=== PATIENT | male | born 1990 | race Caucasian/White ===

== ENCOUNTER 2017-05-09 17:09 | Emergency (ER) | payer OTHER ==
[~2017-05-09] VITALS: Ht 185.4 cm; Wt 74.8 kg
--- NOTE | 2017-05-09 19:43 | ED GI/GU/ABDOMINAL COMPLAINT ---
History of Present Illness General Chief Complaint: Male Genitourinary Problems Stated Complaint: PT IS HAVING PAIN IN RT TESTICULE Source: patient Exam Limitations: no limitations Vital Signs & Intake/Output Vital Signs & Intake/Output Vital Signs Date Time Temp Pulse Resp B/P B/P Pulse O2 O2 Flow FiO2 Mean Ox Delivery Rate 05/09 2100 98.0 78 18 134/66 98 Room Air 05/09 1751 98.0 76 18 165/78 99 Room Air Room Air Allergies Coded Allergies: MDX - Penicillin (PENICILLIN) (Severe, RASH 09/27/12) MDX - SULFA (sulfonamide) (SULFA (SULFONAMIDE)) (Severe, RASH 09/27/12) Uncoded Allergies: CATS (09/27/12) DANDER (09/27/12) DOGS (09/27/12) POLLEN (09/27/12) Reconcile Medications Levofloxacin (Levaquin) 500 MG TABLET 1 TAB PO DAILY EPIDIDMYTIS Triage Note: PT TO ED WITH C/O RIGHT TESTICLE PAIN "I HAD THIS ONCE BEFORE, ABOUT 6 YEARS AGO, THEY SAID IT WAS A BLOCKAGE". Triage Nurses Notes Reviewed? yes Onset: Abrupt Duration: hour(s): Timing: multiple episodes today Quality/Severity: stabbing Severity Numbers: 7 Location: scrotal Radiation: groin Activities at Onset: sleep Sexually Active: Yes Last Time You Were Sexual: less than 2 months ago Sexual Orientation: Heterosexual Use of Protection: Yes Sometimes Modifying Factors: Improves With: rest. Worsens With: exercise. HPI: patient is a 26 y/o male with no PMH presenting for acute onset right testicular pain. patient states that the pain woke him up at 3 A.M and he was unable to return to sleep. patient took "cellulose derivative" to help him pee and the pain went away for 2 hours until 11A.M during physical activity. patient states that the pain was moderately relieved from the ultrasound and the painalso began spreading to his left testicle after the ultrasound. He has had similar pain in the past 7 years ago when he had a "blockage in my tubes" that went away without intervention. patient was assess by urology at that time. patient currently denies any trauma, discharge, odor, abdominal pain, N/V/D, and dysuria. One sexual partner in 3 months. (Tal Julien) Past History Travel History Traveled to [place] past 21 day No Medical History Any Pertinent Medical History? none Neurological: NONE EENT: NONE Cardiovascular: NONE Respiratory: NONE Gastrointestinal: NONE Hepatic: NONE Renal: NONE Musculoskeletal: NONE Psychiatric: NONE Endocrine: NONE Blood Disorders: NONE Cancer(s): NONE GEODETIC COMPUTATOR/Reproductive: NONE Surgical History Surgical History: none Psychosocial History What is your primary language Kiswahili Tobacco Use: Never used ETOH Use: occasional use Illicit Drug Use: denies illicit drug use Family History Hx Contributory? No Sexual History Sexually Active Yes # of partners 1 Sexual Orientation Heterosexual Use of Protection Yes Sometimes (Tal Julien) Review of Systems Review of Systems Constitutional: Reports: no symptoms. EENTM: Reports: no symptoms. Respiratory: Reports: no symptoms. Cardiovascular: Reports: no symptoms. GI: Reports: no symptoms. Genitourinary: Reports: pain. Musculoskeletal: Reports: no symptoms. Skin: Reports: no symptoms. Neurological/Psychological: Reports: no symptoms. Hematologic/Endocrine: Reports: no symptoms. Immunologic/Allergic: Reports: no symptoms. All Other Systems: Reviewed and Negative (Tal Julien) Physical Exam Physical Exam General Appearance: well developed/nourished, no apparent distress, alert, awake , comfortable Head: atraumatic, normal appearance Eyes: Bilateral: normal appearance. Ears, Nose, Throat, Mouth: hearing grossly normal, moist mucous membrane Neck: normal inspection Respiratory: normal breath sounds, chest non-tender, no respiratory distress, lungs clear Cardiovascular: regular rate/rhythm Gastrointestinal: normal bowel sounds, soft, tenderness (bilateral groin) Male Genitals: normal genitalia, epididymal tenderness, testicular tenderness (R ), testicular tenderness (L) Back: normal range of motion Neurologic/Psych: awake, alert, oriented x 3 Skin: intact, normal color, warm/dry Core Measures ACS in differential dx? No Sepsis Present: No Sepsis Focused Exam Completed? No (Tal Julien) Progress Differential Diagnosis: ureterolithiasis, urinary retention, urethritis, UTI/ pyelo, epididymitis Plan of Care: Orders Procedure Date/time Status Add-on Test (ER Only) 05/09 1954 Active CHLAMYDIA-GC DNA PROBE 05/09 1939 Active URINALYSIS 05/09 1825 Complete Laboratory Tests 05/09/171939: Urine Color YEL, Urine Clarity CLEAR, Urine pH 6.0, Ur Specific [place] 1.025, Urine Protein NEG, Urine Ketones NEG, Urine Nitrite NEG, Urine Bilirubin NEG, Urine Urobilinogen 0.2, Ur Leukocyte Esterase NEG, Ur Microscopic EXAM NOT REQUIRED, Urine Hemoglobin NEG, Urine Glucose NEG Microbiology 05/09 1939 URINE ROUT: GC DNA Probe - RECD 05/09 1939 URINE ROUT: Chlamydia DNA Probe ([place]) - RECD Diagnostic Imaging: Viewed by Me: Ultrasound. Discussed w/RAD: Ultrasound. Radiology Impression: PATIENT: ESTEPHANIA MAHONEY PRESENT AGE: 26 PATIENT ACCOUNT NO: [id number] : 90 LOCATION: [facility] ORDERING PHYSICIAN: Tal ROCHE SERVICE DATE: 05/09/17 EXAM TYPE: US - US -TESTICULAR EXAMINATION: US SCROTUM CLINICAL INFORMATION: Right testicular pain. COMPARISON: None TECHNIQUE: A sonogram of the scrotum was performed assessing ocampo-scale appearance and color Doppler flow. Spectral analysis and Doppler interrogation was performed. FINDINGS: RIGHT: Right testicle measures 5.1 x 2.4 x 2.9 cm, volume 25.2 mL. Parenchymal echotexture is normal. No focal testicular parenchymal lesions are visualized. Normal symmetric intratesticular flow is visualized. Right epididymal head is normal in size. There is a 5 mm right epididymal head cyst. No right hydrocele or varicocele is seen. LEFT: Left testicle measures 4.9 x 2.1 x 3.0 cm, volume 21.9 mL. Parenchymal echotexture is normal. No focal testicular parenchymal lesions are visualized. Normal symmetric intratesticular flow is visualized. Left epididymal head is normal in size. No left hydrocele or varicocele is seen. IMPRESSION: Normal testes. 5 mm right epididymal head cyst. DICTATED BY: Blair Castellanos MD DATE/TIME DICTATED:05/09/171943 SAND BLASTER:NEO DATE/TIME TRANSCRIBED:05/09/171943 CONFIDENTIAL, DO NOT COPY WITHOUT APPROPRIATE AUTHORIZATION. <Electronically signed in Other Vendor System> SIGNED BY: Blair Castellanos MD 05/09/171947 Initial ED EKG: none Comments: Patient clinically looks well. In no apparent distress. Follow-up with urologist. Return if any concerns worsening symptoms. (Buster ROCHE,Tal) Departure Departure Disposition: HOME OR SELF CARE Condition: Stable Clinical Impression Primary Impression: Epididymitis Referrals: Sarbjit PALACIOS,Roman Vrenon MD,Jace Reynoso (PCP/Family) Additional Instructions: Take levofloxacin as prescribed. Follow-up with primary care doctor. Follow-up with the urologist provided. Please go over all results of today's visit with your primary care doctor. Contact your primary care doctor to let them know you were here in the emergency room. There may be nonspecific findings which may not be related to your visit today here in the emergency room but may require further evaluation and chronic monitoring by your primary care doctor. If you had a laceration today the chance of foreign body always remains. You should follow-up with your primary care doctor for recheck in 3-5 days for a wound check. If you had an x-ray done there is a chance that a fracture could have been missed on initial read and you should follow-up with your primary care doctor for repeat x-rays if symptoms persist. If your blood pressure was elevated here in the emergency room please have rechecked by [facility] primary care doctor within the next 48. If you were prescribed a narcotic here in the emergency room or any type of controlled substances you're not allowed to drive while taking this medication or operate any type of heavy machinery. Narcotics can make you feel lightheaded dizziness nausea and can cause constipation. You may need to corn picker a stool softener. Thank you for choosing [facility] emergency room. Please return to the emergency room immediately if you have any other concerns worsening of symptoms. Departure Forms: Customer Survey General Discharge Information Prescriptions: Current Visit Scripts Levofloxacin (Levaquin) 1 TAB PO DAILY #7 TAB (Tal Julien) PA/MERCHANT MILLER Co-Sign Statement Statement: ED Attending supervision documentation- I saw and evaluated the patient. I have also reviewed all the pertinent lab results and diagnostic results. I agree with the findings and the plan of care as documented in the PA's/MERCHANT MILLER's documentation. x I have reviewed the ED Record and agree with the PA's/MERCHANT MILLER's documentation. [] Additions or exceptions (if any) to the PAs/MERCHANT MILLER's note and plan are summarized below: [] (Leanna PALACIOS,Neno)
--- NOTE | 2017-05-09 19:48 | ULTRASOUND REPORT ---
EXAMINATION: US SCROTUM CLINICAL INFORMATION: Right testicular pain. COMPARISON: None TECHNIQUE: A sonogram of the scrotum was performed assessing ocampo-scale appearance and color Doppler flow. Spectral analysis and Doppler interrogation was performed. FINDINGS: RIGHT: Right testicle measures 5.1 x 2.4 x 2.9 cm, volume 25.2 mL. Parenchymal echotexture is normal. No focal testicular parenchymal lesions are visualized. Normal symmetric intratesticular flow is visualized. Right epididymal head is normal in size. There is a 5 mm right epididymal head cyst. No right hydrocele or varicocele is seen. LEFT: Left testicle measures 4.9 x 2.1 x 3.0 cm, volume 21.9 mL. Parenchymal echotexture is normal. No focal testicular parenchymal lesions are visualized. Normal symmetric intratesticular flow is visualized. Left epididymal head is normal in size. No left hydrocele or varicocele is seen. IMPRESSION: Normal testes. 5 mm right epididymal head cyst.
[2017-05-09] MEDS ORDERED: LEVAQUIN500 M1 PO (20:06)
[2017-05-09 21:00] VITALS: BP 134/66
== END 2017-05-09 20:59 ==
LOC: ERH 17:09
DX: N45.1 Epididymitis (principal)
CPT/HCPCS: 81003; 87491; 87591; 96372; J0456; J0696